=== PATIENT | male | born 1935 | race Two or more races ===

== ENCOUNTER 2017-02-19 14:05 | Inpatient (IN) | payer MEDICARE, OTHER ==
[~2017-02-19] VITALS: Ht 167.6 cm; Wt 78.7 kg
[2017-02-19] MEDS ORDERED: PANTOPRAZOLE SODIUM 40 MG/VIAL IV STA (18:02)
[2017-02-19] MEDS ORDERED: PANTOPRAZOLE 80 MG in SODIUM CHLORIDE 0.9% 100 ML IV STA (18:02)
[2017-02-19] MEDS ORDERED: SODIUM CHLORIDE 0.9% 1000ML BAG (SEPSIS BOLUS) IV ONE (18:15)
[2017-02-19 19:09] LABS: HEMATOCRIT. 30.2 % (42.0-52.0); HEMOGLOBIN. 10.2 g/dL (14.0-18.0); MEAN CORPUSCULAR HEMOGLOBIN 32.8 pg (28.0-32.0); MEAN CORPUSCULAR VOLUME 96.6 fL (80.0-94.0); MEAN PLATELET VOLUME 8.7 fl (7.4-10.4); PLATELET 171 x1000/uL (130-400); RED BLOOD CELL COUNT 3.12 mill/uL (4.7-6.1)
[2017-02-19 19:15] LABS: INR 1.1; PARTIAL THROMBOPLASTIN TIME 26.8 sec (23.4-31.0); PROTHROMBIN TIME 11.5 sec (9.4-11.6)
[2017-02-19 19:23] LABS: CARBON DIOXIDE 29 mEq/L (21-32); CHLORIDE 104 mEq/L (98-107)
[2017-02-19 19:24] LABS: TROPONIN I 0.13 ng/mL (0.00-0.04)
[2017-02-19 19:53] LABS: PLATELET ESTIMATE NORMAL
[2017-02-19 22:30] VITALS: BP 137/55
[2017-02-19] MEDS ORDERED: IPRATROPIUM/ALBUTEROL 0.5-3(2.5)MG/3ML NEB INH PRN (22:30)
[2017-02-19] MEDS ORDERED: ZOLPIDEM TARTRATE 5MG TABLET PO PRN (22:30)
[2017-02-19] MEDS ORDERED: DOCUSATE SODIUM 100MG CAPSULE PO PRN (22:30)
[2017-02-19] MEDS ORDERED: CLONIDINE 0.1MG TABLET PO PRN (22:30)
[2017-02-19] MEDS ORDERED: MAGNESIUM/ALUMINUM HYDROXIDE/SIMETHICONE 30ML UDC PO PRN (22:30)
[2017-02-19] MEDS ORDERED: CHLORDIAZEPOXIDE 25MG CAPSULE PO NR (22:30)
[2017-02-19] MEDS ORDERED: ONDANSETRON HCL 4MG/2ML VIAL IV PRN (22:30)
[2017-02-19] MEDS ORDERED: FERR325T6 PO (23:45)
[2017-02-19] MEDS ORDERED: LOSA100T14 PO (23:45)
[2017-02-19] MEDS ORDERED: ATOR10TA69 PO (23:45)
[2017-02-19] MEDS ORDERED: TAMS0.4C31 PO (23:45)
[2017-02-19] MEDS ORDERED: PANT40TA4 PO (23:45)
[2017-02-20 00:15] VITALS: BP 137/55
[2017-02-20 00:38] VITALS: BP 137/55
[2017-02-20] MEDS ORDERED: LORAZEPAM 2MG/ML CPJ IV PRN (00:59)
[2017-02-20] MEDS ORDERED: MVI, ADULT NO.1 10 ML, FOLIC ACID 1 MG, THIAMINE HCL 100 MG in SODIUM CHLORIDE 0.9% 1,0... IV ONE ×4 (01:00)
[2017-02-20] MEDS: GUAIFENESIN 200MG/10ML SUGAR FREE UDC PO PRN (01:04)
[2017-02-20 01:10] LABS: AMMONIA 53 uMol/L (<32)
[2017-02-20 04:00] VITALS: BP 139/60
[2017-02-20 05:27] LABS: HEMATOCRIT. 28.4 % (42.0-52.0); HEMOGLOBIN. 9.5 g/dL (14.0-18.0); MEAN CORPUSCULAR HEMOGLOBIN 32.6 pg (28.0-32.0); MEAN CORPUSCULAR VOLUME 97.2 fL (80.0-94.0); MEAN PLATELET VOLUME 9.1 fl (7.4-10.4); PLATELET 155 x1000/uL (130-400); RED BLOOD CELL COUNT 2.92 mill/uL (4.7-6.1); RED CELL DISTRIBUTION WIDTH 14.9 % (11.6-14.6)
[2017-02-20 06:10] LABS: CHLORIDE 108 mEq/L (98-107)
[2017-02-20 06:30] LABS: CARBON DIOXIDE 24 mEq/L (21-32); PHOSPHORUS 2.8 mg/dL (2.5-4.9); TROPONIN I 0.19 ng/mL (0.00-0.04)
[2017-02-20 06:58] LABS: *AMPHETAMINES SCREEN URINE NEGATIVE (NEGATIVE); *BARBITURATES SCREEN URINE NEGATIVE (NEGATIVE); *BENZODIAZEPINES SCREEN URINE NEGATIVE (NEGATIVE); *COCAINE SCREEN URINE NEGATIVE (NEGATIVE); CANNABINOID URINE SCREEN NEGATIVE (NEGATIVE); METHADONE URINE SCREEN NEGATIVE (NEGATIVE); OPIATES URINE SCREEN NEGATIVE (NEGATIVE); PHENCYCLIDINE URINE SCREEN NEGATIVE (NEGATIVE)
[2017-02-20 07:42] LABS: PLATELET ESTIMATE NORMAL
[2017-02-20 08:00] VITALS: BP 122/55
[2017-02-20] MEDS: PANTOPRAZOLE SODIUM 40 MG/VIAL IV SCH ×2 (08:51→18:00)
[2017-02-20] MEDS ORDERED: LACTULOSE 20G/30ML UDC PO NR (11:30)
[2017-02-20 12:24] VITALS: BP 118/46
[2017-02-20] MEDS ORDERED: HYDROMORPHONE HCL/PF 2MG/ML CPJ IV PRN (13:15)
[2017-02-20] MEDS ORDERED: LABETALOL HCL 20MG/4ML CARPUJECT IV PRN (13:15)
[2017-02-20] MEDS ORDERED: ONDANSETRON HCL 4MG/2ML VIAL IV PRN (13:15)
[2017-02-20] MEDS ORDERED: MEPERIDINE HCL/PF 25MG/ML CPJ IV PRN (13:15)
[2017-02-20 16:24] VITALS: BP 136/65
[2017-02-20] MEDS: ATORVASTATIN CALCIUM 10MG TABLET PO SCH (20:24)
[2017-02-20] MEDS: ACETAMINOPHEN 325MG TABLET PO PRN (20:24)
[2017-02-21 00:30] VITALS: BP 116/52
[2017-02-21 04:00] VITALS: BP 135/62
[2017-02-21 07:16] LABS: BASOPHILS % 0.4 % (0.0-2.0); EOSINOPHILS % 1.1 % (0.0-5.0); HEMATOCRIT 27.8 % (42.0-52.0); HEMATOCRIT. 27.8 % (42.0-52.0); HEMOGLOBIN 9.3 g/dL (14.0-18.0); HEMOGLOBIN. 9.3 g/dL (14.0-18.0); LYMPHOCYTES % 13.1 % (20.0-50.0); MEAN CORPUSCULAR HEMOGLOBIN 32.3 pg (28.0-32.0); MEAN CORPUSCULAR VOLUME 96.3 fL (80.0-94.0); MEAN PLATELET VOLUME 8.5 fl (7.4-10.4); MONOCYTES % 14.4 % (2.0-8.0); PLATELET 148 x1000/uL (130-400); RED BLOOD CELL COUNT 2.89 mill/uL (4.7-6.1); RED CELL DISTRIBUTION WIDTH 14.5 % (11.6-14.6)
[2017-02-21 07:37] LABS: CHLORIDE 108 mEq/L (98-107)
[2017-02-21 07:52] LABS: AMMONIA 34 uMol/L (<32)
[2017-02-21 07:53] LABS: CARBON DIOXIDE 23 mEq/L (21-32); TOTAL IRON BINDING CAPACITY 243 ug/dL (250-450)
[2017-02-21 08:00] VITALS: BP 126/60
[2017-02-21] MEDS: PANTOPRAZOLE SODIUM 40 MG/VIAL IV SCH ×2 (08:54→18:01)
[2017-02-21] MEDS: TAMSULOSIN HCL 0.4MG SR CAPSULE PO SCH (08:55)
[2017-02-21] MEDS: LOSARTAN POTASSIUM 100 MG TABLET PO SCH (08:55)
[2017-02-21 09:19] LABS: VITAMIN B12 SERUM 439 pg/mL (211-911)
[2017-02-21 09:24] LABS: FOLIC ACID (FOLATE) SERUM > 20.00 ng/mL (>5.38)
[2017-02-21 10:51] LABS: FERRITIN 115 ng/mL (22-322)
[2017-02-21 12:00] VITALS: BP 127/64
[2017-02-21] MEDS: ACETAMINOPHEN 325MG TABLET PO PRN ×2 (15:37→21:05)
[2017-02-21 16:00] VITALS: BP 120/51
[2017-02-21 20:00] VITALS: BP 114/55
[2017-02-21] MEDS: ATORVASTATIN CALCIUM 10MG TABLET PO SCH (20:58)
[2017-02-21] MEDS: GUAIFENESIN 200MG/10ML SUGAR FREE UDC PO PRN (21:05)
[2017-02-22] VITALS: BP 119/51
[2017-02-22 04:00] VITALS: BP 108/51
[2017-02-22 05:51] LABS: HEMATOCRIT. 27.7 % (42.0-52.0); HEMOGLOBIN. 9.2 g/dL (14.0-18.0); MEAN CORPUSCULAR VOLUME 96.3 fL (80.0-94.0); PLATELET 146 x1000/uL (130-400); RED BLOOD CELL COUNT 2.88 mill/uL (4.7-6.1); RED CELL DISTRIBUTION WIDTH 14.6 % (11.6-14.6)
[2017-02-22 06:13] LABS: AMMONIA 59 uMol/L (<32)
[2017-02-22 06:24] LABS: CHLORIDE 106 mEq/L (98-107)
[2017-02-22 06:37] LABS: CARBON DIOXIDE 25 mEq/L (21-32)
[2017-02-22 08:00] VITALS: BP 110/56
[2017-02-22] MEDS: PANTOPRAZOLE SODIUM 40 MG/VIAL IV SCH ×2 (09:02→18:16)
[2017-02-22] MEDS: LOSARTAN POTASSIUM 100 MG TABLET PO SCH (09:02)
[2017-02-22] MEDS: TAMSULOSIN HCL 0.4MG SR CAPSULE PO SCH (09:03)
[2017-02-22] MEDS: ACETAMINOPHEN 325MG TABLET PO PRN (09:09)
[2017-02-22 12:00] VITALS: BP 117/48
[2017-02-22] MEDS: LACTULOSE 20G/30ML UDC PO SCH ×2 (13:33→18:16)
[2017-02-22 13:41] LABS: PLATELET ESTIMATE NORMAL
[2017-02-22] MEDS ORDERED: POTASSIUM CHLORIDE 20MEQ TABLET SR PO NR (14:00)
[2017-02-22 16:00] VITALS: BP 102/58
[2017-02-22 20:00] VITALS: BP 115/61
[2017-02-22] MEDS: ATORVASTATIN CALCIUM 10MG TABLET PO SCH (21:06)
[2017-02-22] MEDS: GUAIFENESIN 200MG/10ML SUGAR FREE UDC PO PRN (21:42)
[2017-02-23] VITALS: BP 126/57
[2017-02-23 04:00] VITALS: BP 116/61
[2017-02-23 07:18] LABS: HEMATOCRIT. 28.7 % (42.0-52.0); HEMOGLOBIN. 9.7 g/dL (14.0-18.0); MEAN CORPUSCULAR VOLUME 95.1 fL (80.0-94.0); MEAN PLATELET VOLUME 8.3 fl (7.4-10.4); PLATELET 160 x1000/uL (130-400); RED BLOOD CELL COUNT 3.02 mill/uL (4.7-6.1); RED CELL DISTRIBUTION WIDTH 14.3 % (11.6-14.6)
[2017-02-23 07:53] LABS: CARBON DIOXIDE 26 mEq/L (21-32); CHLORIDE 108 mEq/L (98-107)
[2017-02-23] MEDS ORDERED: SIMETHICONE 40 MG/0.6 ML 30ML ONE (08:05)
[2017-02-23] MEDS ORDERED: SODIUM CHLORIDE 0.9% 10ML VIAL ONE (08:05)
[2017-02-23 08:30] VITALS: BP 123/53
[2017-02-23] MEDS: LACTULOSE 20G/30ML UDC PO SCH (09:20)
[2017-02-23] MEDS: PANTOPRAZOLE SODIUM 40 MG/VIAL IV SCH (09:20)
[2017-02-23] MEDS: LOSARTAN POTASSIUM 100 MG TABLET PO SCH (09:21)
[2017-02-23] MEDS: TAMSULOSIN HCL 0.4MG SR CAPSULE PO SCH (09:21)
[2017-02-23 10:02] LABS: PLATELET ESTIMATE NORMAL
[2017-02-23 12:00] VITALS: BP 121/63
[2017-02-23 13:26] VITALS: BP 121/63
== END 2017-02-23 11:50 | disposition home or self-care (01) | DRG 378 ==
LOC: ER 15:32 → 5WST 21:17 → EDBEDREQ 21:21 → ENRESERV 21:37 → SUPCPDRO 22:17
PROVIDERS: ADMIT Family Medicine Adult Medicine; ATTEND Family Medicine Adult Medicine
PROC: 0DB68ZX Excision of Stomach, Via Natural or Artificial Opening Endoscopic, Diagnostic (ICD-10-PCS; principal; 2017-02-20 13:00)
DX: K92.1 Melena (principal); E72.20 Disorder of urea cycle metabolism, unspecified; D53.9 Nutritional anemia, unspecified; N28.1 Cyst of kidney, acquired; E78.00 Pure hypercholesterolemia, unspecified; E78.5 Hyperlipidemia, unspecified; F10.10 Alcohol abuse, uncomplicated; K21.9 Gastro-esophageal reflux disease without esophagitis; K29.70 Gastritis, unspecified, without bleeding; K29.80 Duodenitis without bleeding; K44.9 Diaphragmatic hernia without obstruction or gangrene; I10 Essential (primary) hypertension; N40.0 Benign prostatic hyperplasia without lower urinary tract symptoms; Z87.891 Personal history of nicotine dependence; Z79.899 Other long term (current) drug therapy
CPT/HCPCS: 36415; 71010; 76700; 80048; 80053; 80076; 80305; 82140; 82248; 82270; 82607; 82728; 82746; 83540; 83550; 83735; 84100; 84443; 84484; 85025; 85027; 85610; 85730; 86850; 86900; 88305; 88312; 88313; 93005; 93306; 93970; 96361; 96365; 96375; 99285; A4216; C1893; C9113; G0482; J3411; J3490; J7030; J7050

== ENCOUNTER 2017-09-12 19:11 | Emergency (ER) | payer MEDICARE, OTHER ==
[~2017-09-12] VITALS: Ht 167.6 cm; Wt 75.4 kg
[~2017-09-12 19:11] MED LIST: ATOR10TA69 PO; FERR325T6 PO; LOSA100T14 PO; PANT40TA4 PO; TAMS0.4C31 PO
[2017-09-12 19:29] VITALS: BP 203/96
== END 2017-09-12 21:35 | disposition left against medical advice (07) ==
LOC: ER 20:09
DX: R10.30 Lower abdominal pain, unspecified (principal); K59.00 Constipation, unspecified; M54.5 Low back pain; Z53.21 Procedure and treatment not carried out due to patient leaving prior to being seen by health care provider